=== PATIENT | female | born 1940 | race Caucasian/White ===

== ENCOUNTER 2022-03-16 22:48 | Emergency (ER) | payer OTHER, SELFPAY ==
[2022-03-16 23:06] VITALS: BP 140/71; BP 160/84; PULSE 81; PULSE 87; RESP 14; TEMP 36.4; O2SAT 100; O2SAT 95; BMI 34.4
--- NOTE | 2022-03-16 23:27 | ED.LOWEXIN ---
HPI - Extremity Injury (Lower) General Chief Complaint: Extremity Injury, Lower Stated Complaint: swelling to rt foot Time Seen by Provider: 03/16/22 22:53 Source: patient, family and EMS Mode of arrival: other (fili lift to wheelchair at baseline ) Limitations: language barrier and other (dementia) History of Present Illness HPI Narrative: Patient is a 81-year-old female presenting via EMS with redness, swelling, and coldness of her right foot. Patient is [place]-speaking only and has baseline dementia, daughter is at bedside providing history. Daughter states that patient developed redness to her right foot x1 week, and notes it to be more swollen than usual. Daughter states that patient has physical therapy twice weekly, the physical therapy his raise concerns for blood clot today. 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 Patient is nonambulatory at baseline. Patient has severe nerve pain in her upper and lower extremities at baseline secondary to previous spinal surgeries. Denies fever, headache, changes in vision, nausea, vomiting, diarrhea, chest pain, shortness of breath, cough. Daughter reports patient seems to be in increased amounts of pain over the last few weeks. MD complaint: other (right foot pain and redness) Onset (ago): week(s) Type of Injury: unknown Severity: severe Relieving factors: nothing Exacerbating factors: palpation Associated symptoms: unable to bear weight and other (bedbound x1 year) Other symptoms: none Related Data Previous Rx's Medication Instructions Recorded ketoconazole 2 % topical cream 1 appl topical DAILY #15 grams 03/17/22 oxycodone 5 mg tablet 5 mg PO BID PRN Severe pain #6 tabs 03/17/22 Allergies Allergy/AdvReac Type Severity Reaction Status Date / Time Unable to Assess Allergy Unverified 03/16/22 23:21 Review of Systems Review of Systems: Constitutional: No Fever, No Chills ENT/Mouth: No sore throat, No Rhinorrhea, No Swallowing Difficulty Eyes: No Eye Pain, No Swelling, No Redness Cardiovascular: No Chest Pain, No SOB, No Orthopnea, No Edema Respiratory: No Cough, No Sputum, No Wheezing, No dyspnea Gastrointestinal: No Nausea, No Vomiting, No Diarrhea, No abdominal Pain, No Hematochezia, No Melena Genitourinary: No Dysuria, No Urinary Frequency, No Hematuria Musculoskeletal: + joint pain, + Myalgias Skin: + redness of right foot Neuro: + nerve pain of upper and lower extremities, + Weakness, No Numbness, No Dizziness, No Headache Psych: No Anxiety/Panic, No Depression Heme/Lymph: No Bruising, No Lymphadenopathy Endocrine: No Polyuria, No Polydipsia PMFSH Social History Social History Advance Directives: No Advance Directives Information Provided: No Physical Exam Vital Signs: Vital Signs: Last Vital Signs Temp 97.6 F 03/16/22 23:06 Pulse 81 03/16/22 23:06 Resp 14 03/16/22 23:06 BP 140/71 H 03/16/22 23:06 Pulse Ox 100 03/16/22 23:06 O2 Del Method 03/16/22 23:06 BMI result Body Mass Index 34.4 Const: Other: Appearance: Alert. Oriented X3. No acute distress. Bed-bound Eyes: Pupils equal, round and reactive to light. ENT: Pharynx normal. Neck: Normal inspection. Neck supple. CVS: Normal heart rate and rhythm. Pulses normal. Respiratory: No respiratory distress. Breath sounds normal. Abdomen: Soft, nondistended, nontender. +BS x4 Skin:: + scattered erythematous flaky lesions to medial aspect and bottom of right foot, mild hyperpigmentation to the medial aspect of the left foot as well Extremities: 1+ pitting edema of bilateral lower extremities, feet cool bilaterally with palpable 1+ DP and PT pulses and brisk capillary refill Neuro: Oriented X 3, CN II-XII intact Course Course Course Narrative: Patient is a 81-year-old female presenting via EMS with redness, swelling, and coldness of her left foot. Patient is [place]-speaking only and has baseline dementia, daughter is at bedside providing history. Patient nonambulatory a baseline requiring higher lift for transfers to wheelchair. Patient also has severe nerve pain in bilateral upper and lower extremities at baseline. On exam, there are scattered erythematous flaky lesions to medial aspect and bottom of right foot, and 1+ pitting edema present bilaterally. There also pigment changes to bilateral feet consistent with peripheral vascular disease. No unilateral swelling, no increased warmth, patient is on Eliquis. Suspicious for peripheral vascular disease at this time, as well as possible tinea pedis of right foot with flakey erythematous rash. Low concern for DVT at this time. CRP reassuring at 0.22, ESR pending at this time. Patient and daughter reassured, topical ketoconazole ointment prescribed for possible tinea pedis, short course of narcotics for pain control, and referrals to pain management and vascular Services. Patient stable for discharge at this time. All questions were answered and daughter agrees with plan. MDM - Extremity Injury (Lower) Lab Data Result diagrams: 03/16/22 23:38 03/16/22 23:37 Labs: Lab Results 03/16/22 03/16/22 Range/Units 23:37 23:38 WBC 5.9 (4.8-10.8) X10*3/uL RBC 4.89 (4.20-5.50) X10*6/uL Hgb 13.4 (12.0-16.0) g/dl Hct 41.1 (37.0-47.0) % MCV 84.0 (80.0-98.0) fL MCH 27.4 (27.0-33.0) pg MCHC 32.6 (31.0-35.0) g/dl RDW 14.1 (11.0-16.0) % Plt Count 241 (160-400) X10*3/uL MPV 9.3 L (9.4-12.3) fL Immature Gran % (Auto) 0.2 (0.0-0.4) % Neut % (Auto) 33.5 L (45-73) % Lymph % (Auto) 52.2 H (20-40) % [place] % (Auto) 9.2 (2-11) % Eos % (Auto) 3.9 (0-4) % Baso % (Auto) 1.0 (0-2) % Lymph # (Auto) 3.1 (1.2-4.9) X10*3/uL [place] # (Auto) 0.5 (0.1-1.2) X10*3/uL Eos # (Auto) 0.2 (0.0-0.4) X10*3/uL Baso # (Auto) 0.1 (0.0-0.2) X10*3/uL Abs Immat Gran (auto) 0.01 (0.00-0.03) X10*3/uL Absolute Neuts (auto) 2.0 (2.0-8.3) x10*3/uL Absolute Nucleated RBC 0.000 (0.0-0.012) X10*3/uL Nucleated RBC % (auto) 0.0 (0.0-0.2) /100WBC Sodium 140 (135-145) mmol/L Potassium 4.5 (3.3-5.1) mmol/L Chloride 103 (96-108) mmol/L Carbon Dioxide 25 (22-29) mmol/L Anion Gap 17 (12-20) BUN 17 H (9-16) mg/dL Creatinine 0.61 (0.5-1.4) mg/dL Estim Creat Clear Calc 67.7 Estimated GFR > 60 Random Glucose 110 (60-115) mg/dL Calcium 9.3 (8.4-10.2) mg/dL C-Reactive Protein 0.22 (< or = 0.50) mg/dL Critical Care Time Critical Care Time Critical Care Time: No Discharge Plan Discharge Clinical Impression: Peripheral vascular disease, Foot swelling, Tinea pedis Patient Disposition: Home, Self-Care Instructions: Peripheral Vascular Disease (ED), Skin Yeast Infection (ED) Additional Instructions: Apply topical antifungal ointment as directed. Use oxycodone for pain as needed. Follow-up with pain management and vascular Services. If you develop new or worsening symptoms call 911 or come back to the ER for further evaluation. Prescriptions: New ketoconazole 2 % cream 1 appl topical DAILY Qty: 15 0RF oxycodone 5 mg tablet 5 mg PO BID PRN (Reason: Severe pain) Qty: 6 0RF Rx Instructions: Partial Fill upon patient request. Referrals: [facility] [place] [facility] [Provider Group] [facility] [place] [facility] [Provider Group] Print Language: [place]
[2022-03-16 23:45] LABS: MANUAL DIFF FLAG NO
[2022-03-16] MEDS: HYDROcodone Bit/Acetam 5/325 TABLET 1 TAB PO (23:46)
[2022-03-16 23:48] LABS: Basophils Absolute Auto 0.1 X10*3/uL (0.0-0.2); Eosinophils Absolute Auto 0.2 X10*3/uL (0.0-0.4); Eosinophils Percent Auto 3.9 % (0-4); Hematocrit 41.1 % (37.0-47.0); Hemoglobin 13.4 g/dl (12.0-16.0); Imm Gran Abs Auto 0.01 X10*3/uL (0.00-0.03); Imm Gran Pct Auto 0.2 % (0.0-0.4); Lymphocytes Absolute Auto 3.1 X10*3/uL (1.2-4.9); Lymphocytes Percent Auto 52.2 % (20-40); Mean Corpuscular HGB Conc 32.6 g/dl (31.0-35.0); Mean Corpuscular Hemoglobin 27.4 pg (27.0-33.0); Mean Platelet Volume 9.3 fL (9.4-12.3); Monocytes Absolute Auto 0.5 X10*3/uL (0.1-1.2); Monocytes Percent Auto 9.2 % (2-11); Neutrophils Percent Auto 33.5 % (45-73); Platelet Count 241 X10*3/uL (160-400); Red Blood Count 4.89 X10*6/uL (4.20-5.50); Red Cell Distribution Width 14.1 % (11.0-16.0); White Blood Count 5.9 X10*3/uL (4.8-10.8)
[2022-03-17 00:05] LABS: Anion Gap 17 (12-20); Blood Urea Nitrogen 17 mg/dL (9-16); C Reactive Protein 0.22 mg/dL (< or = 0.50); Calcium 9.3 mg/dL (8.4-10.2); Carbon Dioxide 25 mmol/L (22-29); Chloride 103 mmol/L (96-108); Creatinine Clr Calc Pharmacy 67.7; Estimated Glomerular Filt Rate > 60; Glucose Random 110 mg/dL (60-115); Potassium 4.5 mmol/L (3.3-5.1); Sodium 140 mmol/L (135-145)
[2022-03-17 00:47] LABS: Erythrocyte Sedimentation Rate 13 MM/HR (0-20)
--- NOTE | 2022-03-17 01:25 | PC.NURSE ---
This US/PCT called [facility] at [id number] and spoke to Federico from dispatch for a bls transport back home per Gissell RUIZ. Booked for 0200AM Rn and Feeder/Folder aware.
[2022-03-17 02:09] VITALS: BP 181/80; PULSE 79; RESP 18; O2SAT 95
[2022-03-17 02:34] VITALS: BP 163/68; PULSE 79; O2SAT 100
[2022-03-17 03:22] VITALS: BP 146/72; PULSE 80; O2SAT 100
== END 2022-03-17 04:27 | disposition home or self-care (01) ==
PROVIDERS: Physician Assistant; Emergency Provider Emergency Medicine; PCP Internal Medicine
DX: I73.9 Peripheral vascular disease, unspecified (principal); B35.3 Tinea pedis; R60.0 Localized edema; M79.671 Pain in right foot; Z86.718 Personal history of other venous thrombosis and embolism
CPT/HCPCS: 36415; 80048; 85025; 85652; 86140; 99283

== ENCOUNTER → 2022-05-15 10:51 | Outpatient (BNVA) | payer OTHER, SELFPAY | PROVIDERS: PCP Internal Medicine; Visit Provider Surgery Vascular Surgery | DX: I73.9 Peripheral vascular disease, unspecified (principal); I82.409 Acute embolism and thrombosis of unspecified deep veins of unspecified lower extremity | CPT/HCPCS: 99202 ==